=== PATIENT | male | born 1955 | race Caucasian/White ===

== ENCOUNTER 2024-02-21 06:09 | Day surgery (SDC) | payer OTHER ==
[2024-02-21] VITALS (12 sets, daily range): BP systolic 131–171; BP diastolic 76–89; PULSE 64–77; RESP 15–22
[~2024-02-21] VITALS: Ht 170.2 cm; Wt 95.3 kg
[2024-02-21] MEDS: 0.9%NACL 1000ML 1,000 ML IV ONE (07:05)
[2024-02-21] MEDS ORDERED: TAMS-1 PO (07:12)
[2024-02-21] MEDS ORDERED: FLUT1BLS12 IH (07:12)
[2024-02-21] MEDS ORDERED: CYAN-106 PO (07:12)
[2024-02-21] MEDS ORDERED: HYDR50TA PO (07:12)
[2024-02-21] MEDS ORDERED: TIOT4MIS2 IH (07:12)
[2024-02-21] MEDS ORDERED: ALBU0.63 IH (07:12)
[2024-02-21] MEDS ORDERED: LEVO137C4 PO (07:12)
[2024-02-21] MEDS ORDERED: PROPOFOL 10 MG/ML 20ML VIAL IV ONE (09:01)
== END 2024-02-21 10:20 | disposition home or self-care (01) ==
LOC: ENDO 06:09 → DAH 06:09 → ENDO 10:20
PROVIDERS: ATTEND Internal Medicine Gastroenterology
DX: D50.9 Iron deficiency anemia, unspecified (principal); J44.9 Chronic obstructive pulmonary disease, unspecified; J38.6 Stenosis of larynx; I10 Essential (primary) hypertension; Z82.49 Family history of ischemic heart disease and other diseases of the circulatory system; Z79.51 Long term (current) use of inhaled steroids; Z79.899 Other long term (current) drug therapy; Z98.890 Other specified postprocedural states; Z53.8 Procedure and treatment not carried out for other reasons
CPT/HCPCS: 43235; J7030; J2704; A4620; A4215 ×2; A4223; A4221; A4663; A4606; J3490

== ENCOUNTER → 2024-02-24 | Outpatient (CLI) | payer OTHER ==
[~2024-02-24] MED LIST: ALBU0.63 IH; CYAN-106 PO; FLUT1BLS12 IH; HYDR50TA PO; LEVO137C4 PO; TAMS-1 PO; TIOT4MIS2 IH
== END | disposition home or self-care (01) ==
LOC: RAH 09:16
PROVIDERS: ATTEND Internal Medicine Pulmonary Disease
DX: S27.809A Unspecified injury of diaphragm, initial encounter (principal); R06.00 Dyspnea, unspecified; X58.XXXA Exposure to other specified factors, initial encounter; Y93.89 Activity, other specified; Y92.89 Other specified places as the place of occurrence of the external cause; Y99.8 Other external cause status
CPT/HCPCS: 76000

== ENCOUNTER → 2024-08-21 | Outpatient (CLI) | payer OTHER ==
--- NOTE | 2024-08-21 09:15 | HMCIMG ---
Exam Type: SNIFF TEST, CHEST FLUOROSCOPY Clinical Information: PERSISTENT SOB Comparison: None Findings: Examination shows normal excursion of the right hemidiaphragm. The left hemidiaphragm is elevated and shows no significant excursion and even demonstrates mild paradoxical motion on sniff test. These findings are consistent with left hemidiaphragmatic paralysis. IMPRESSION: Left hemidiaphragmatic paralysis.
== END | disposition home or self-care (01) ==
LOC: RAH 08:19
PROVIDERS: ATTEND Internal Medicine Pulmonary Disease
DX: S27.809A Unspecified injury of diaphragm, initial encounter (principal); J98.6 Disorders of diaphragm; X58.XXXA Exposure to other specified factors, initial encounter; Y93.89 Activity, other specified; Y92.89 Other specified places as the place of occurrence of the external cause; Y99.8 Other external cause status
CPT/HCPCS: 76000